=== PATIENT | male | born 1985 | race Caucasian/White ===

== ENCOUNTER 2024-11-20 14:20 | Emergency (ER) | payer MEDICAID ==
[~2024-11-20] VITALS: Ht 177.8 cm; Wt 82.0 kg
[2024-11-20 14:24] VITALS: TEMP 36.8; O2SAT 98
[2024-11-20] MEDS: LORAZEPAM 1MG TABLET PO ONE (14:37)
[2024-11-20 15:02] LABS: CLARITY URINE CLEAR (CLEAR); COLOR URINE YELLOW (YELLOW); GLUCOSE URINE NEGATIVE (NEGATIVE); KETONES URINE TRACE (NEGATIVE); LEUKOCYTE ESTERASE URINE NEGATIVE (NEGATIVE); NITRITE URINE NEGATIVE (NEGATIVE); OCCULT BLOOD URINE NEGATIVE (NEGATIVE); PH URINE 6.5 (4.5-8.0); PROTEIN URINE NEGATIVE (NEGATIVE); SPECIFIC GRAVITY URINE 1.007 (1.005-1.030); UROBILINOGEN URINE 0.2 E.U./dL (0.2-1.0)
[2024-11-20 15:15] LABS: *AMPHETAMINES SCREEN URINE PRESUMPTIVE POSITIVE (NEGATIVE); *BARBITURATES SCREEN URINE NEGATIVE (NEGATIVE); *BENZODIAZEPINES SCREEN URINE NEGATIVE (NEGATIVE); *COCAINE SCREEN URINE NEGATIVE (NEGATIVE); CANNABINOID URINE SCREEN NEGATIVE (NEGATIVE); ECSTASY MDMA SCREEN URINE NEGATIVE (NEGATIVE); METHADONE URINE SCREEN NEGATIVE (NEGATIVE); OPIATES URINE SCREEN NEGATIVE (NEGATIVE); PHENCYCLIDINE URINE SCREEN NEGATIVE (NEGATIVE)
[2024-11-20] MEDS: OLANZAPINE 5MG TABLET ODT PO ONE (15:45)
[2024-11-20 16:12] LABS: CARBON DIOXIDE 28 mEq/L (21-32); CHLORIDE 100 mEq/L (98-107); SODIUM 138 mEq/L (136-145)
[2024-11-20 16:13] LABS: BASOPHILS % 0.2 % (0.0-2.0); CALCIUM 9.3 mg/dL (8.7-10.4); HEMATOCRIT. 41.3 % (42.0-52.0); HEMOGLOBIN. 13.8 g/dL (14.0-18.0); LYMPHOCYTES % 19.6 % (20.0-50.0); MEAN CORPUSCULAR HEMOGLOBIN 29.8 pg (28.0-32.0); MEAN CORPUSCULAR HGB CONC 33.3 g/dL (31.0-37.0); MEAN CORPUSCULAR VOLUME 89.4 fL (80.0-94.0); MEAN PLATELET VOLUME 8.6 fl (7.4-10.4); MONOCYTES % 13.6 % (2.0-8.0); NEUTROPHILS % 66.6 % (40.0-76.0); PLATELET 245 x1000/uL (130-400); RED BLOOD CELL COUNT 4.62 mill/uL (4.7-6.1); RED CELL DISTRIBUTION WIDTH 13.4 % (11.6-14.6); WHITE BLOOD COUNT 10.7 x1000/uL (4.5-11.0)
[2024-11-20 16:17] LABS: CREATININE 1.2 mg/dL (0.6-1.3)
[2024-11-20 16:18] LABS: GLUCOSE 82 mg/dL (70-105); UREA NITROGEN BLOOD 14 mg/dL (9-23)
[2024-11-20 16:19] LABS: ACETAMINOPHEN < 2 ug/mL (10-30)
[2024-11-20 16:22] LABS: ETHANOL BLOOD < 10 mg/dL (<10)
[2024-11-20] MEDS ORDERED: OLAN10TA3 MT (17:28)
[2024-11-20 18:05] VITALS: BP 146/97; PULSE 68; RESP 18; O2SAT 99
== END 2024-11-20 18:12 | disposition home or self-care (01) ==
LOC: ER 14:20
DX: F15.90 Other stimulant use, unspecified, uncomplicated (principal); F32.A Depression, unspecified; Z72.0 Tobacco use
CPT/HCPCS: 99283; 80048; 80307; 85025; 36415; 81003; G0480; 80305; 80320; 80329